=== PATIENT | female | born 1990 | race Caucasian/White ===

== ENCOUNTER → 2021-02-25 09:45 | Outpatient (CLI) | payer OTHER, SELFPAY ==
[2021-02-25 12:15] LABS: Influenza A - CEPHEID Flu A NEGATIVE (NEGATIVE); Influenza B - CEPHEID Flu B NEGATIVE (NEGATIVE)
[2021-02-25 12:37] LABS: COVID-19 CEPHEID PCR (VTM/NP) Negative (Negative)
== END ==
PROVIDERS: Visit Provider Nurse Practitioner Family
DX: R68.89 Other general symptoms and signs (principal); Z20.822 Contact with and (suspected) exposure to COVID-19
CPT/HCPCS: 87502; U0003

== ENCOUNTER → 2021-02-26 14:32 | Outpatient (CLI) | payer OTHER, SELFPAY | PROVIDERS: Visit Provider Physician Assistant | DX: R52 Pain, unspecified (principal) | CPT/HCPCS: 87070 ==

== ENCOUNTER → 2023-01-17 08:18 | Outpatient (CLI) | payer OTHER, SELFPAY ==
[2023-01-17 08:56] LABS: Add Manual Diff / Slide Review NO; Basophils Absolute Auto 0 /uL (0-100); Basophils Percent Auto 0.6 % (0-2); Eosinophils Absolute Auto 100 /uL (0-450); Eosinophils Percent Auto 1.4 % (2-4); Hematocrit 39.6 % (36-46); Hemoglobin 13.4 g/dL (12.0-16.0); Lymphocytes Absolute Auto 1800 /uL (1100-4500); Lymphocytes Percent Auto 33.7 % (25-40); Mean Corpuscular Hemoglobin 32.1 PG (26-34); Mean Corpuscular Volume 94.5 fL (80-100); Monocytes Absolute Auto 600 /uL (0-900); Neutrophils Absolute Auto 2800 /uL (1500-7000); Neutrophils Percent Auto 53.3 % (50-75); Platelet Count 237 X10^3/uL (150-400); Red Blood Cell Count 4.19 X10^6/uL (4.0-5.2); Red Cell Distribution Width 12.4 % (11.6-14.8); White Blood Cell Count 5.2 X10^3/uL (4.5-11.0)
[2023-01-17 09:14] LABS: Alanine Aminotransferase 15 IU/L (<35); Albumin 4.4 g/dL (3.5-5.0); Albumin Globulin Ratio 1.5 (1.0-2.8); Alkaline Phosphatase 44 U/L (38-126); Aspartate Aminotransferase 20 IU/L (14-36); BUN Creatinine Ratio 28.1 (6-22); Bilirubin Total 0.5 mg/dL (0.2-1.3); Blood Urea Nitrogen 18 mg/dL (7-17); Calcium 9.4 mg/dL (8.4-10.2); Carbon Dioxide 24 mmol/L (22-32); Chloride 107 mmol/L (98-107); Cholesterol 145 mg/dL (140-199); Estimated Glomerular Filt Rate > 60 mL/min (>60); Glucose 95 mg/dL (70-100); HDL Cholesterol 55 mg/dL (40-60); HEMOLYSIS < 15 (0-50); LDL Cholesterol Calculated 79 mg/dL (<100); Potassium 3.7 mmol/L (3.4-5.1); Sodium 139 mmol/L (137-145); Total Protein 7.4 g/dL (6.3-8.2); Triglycerides 55 mg/dL (35-150)
[2023-01-17 09:16] LABS: Hemoglobin A1C% w Est Avg Glu 5.2 % (4.0-6.0)
[2023-01-17 09:19] LABS: High Sensitivity CRP - Cardiac 0.8 mg/L (1.0-3.0)
[2023-01-17 09:42] LABS: TSH w/ Reflex to FT4 1.38 uIU/mL (0.47-4.68)
[2023-01-17 09:47] LABS: Ferritin 21 ng/mL (6-137)
== END ==
PROVIDERS: PCP Family Medicine; Visit Provider Family Medicine
DX: D64.9 Anemia, unspecified (principal); E78.5 Hyperlipidemia, unspecified; R53.83 Other fatigue; R73.9 Hyperglycemia, unspecified
CPT/HCPCS: 80053; 80061; 82728; 83036; 84443; 85025; 86140

== ENCOUNTER 2023-07-13 12:24 | Emergency (ER) | payer OTHER, SELFPAY ==
[2023-07-13 12:31] VITALS: BP 166/110; PULSE 85; RESP 14; TEMP 36.6; O2SAT 97; BMI 28.1
--- NOTE | 2023-07-13 15:01 | DI.CT.S_ITS ---
PROCEDURE: CT HEAD/BRAIN WO CON INDICATIONS: double vision /headache TECHNIQUE: Noncontrast 4.5 mm thick angled axial sections acquired from the foramen magnum to the vertex, with coronal and sagittal reformats. For radiation dose reduction, the following was used: automated exposure control, adjustment of mA and/or kV according to patient size. COMPARISON: [facility], CT, CT ANGIO HEAD AND NECK, 07/13/2023, 15:24. FINDINGS: Image quality: Diagnostic. CSF spaces: Basal cisterns are patent. No extra-axial fluid collections. Ventricles are normal in size and shape. Brain: No midline shift. No intracranial masses or hemorrhage. Polo-white matter interface is normal. Skull and face: Calvarium and visualized facial bones are intact, without suspicious lesions. Sinuses: Moderate mucosal thickening can be seen within the left maxillary sinus, with milder mucosal thickening seen elsewhere within the paranasal sinuses. No abnormal fluid is seen within the mastoid air cells. IMPRESSION: No imaging explanation is found for this patient's presenting symptoms. No acute intracranial hemorrhage is seen. Dictated by: Rohit Dallas M.D. on 07/13/2023 at 14:40 Approved by: Rohit Dallas M.D. on 07/13/2023 at 14:42
[2023-07-13 15:03] VITALS: BP 164/85; PULSE 78; O2SAT 99
--- NOTE | 2023-07-13 15:03 | ED.NEUROSD ---
HPI - Neuro Symptoms/Deficit General Chief Complaint: Eye Problems Stated Complaint: double vision, lightheaded sent by PCP Time Seen by Provider: 07/13/23 14:04 Source: patient Mode of arrival: Ambulatory History of Present Illness HPI Narrative: patient here with . Just prior to arrival at work patient experienced 1 or 2 minute episode double vision dizziness nausea and feeling flushed. No headache. No palpitations no chest pain. No slurred speech or seizure activity. No unilateral weakness or numbness. Episode was witnessed by co-worker. No prior history of seizure or migraine headaches. No family history of strokes. Blood pressure noted. She states she has anxiety. She was very anxious when triaging. We will recheck blood pressure. Patient is asymptomatic at this time. Denies . On Anticoagulants: No Related Data Home Medications Medication Instructions Recorded Confirmed propranolol 10 mg tablet 10 mg PO ONCE PRN 07/18/23 07/18/23 Allergies Allergy/AdvReac Type Severity Reaction Status Date / Time No Known Drug Allergies Allergy Verified 07/18/23 13:25 Review of Systems Review of Systems Narrative: GENERAL: negative chills, fatigue, malaise, fever, sweats. HEENT: negative sinus pain, ear pain, sore throat RESPIRATORY: negative dyspnea, cough CARDIOVASCULAR: negative chest pain, palpitations GASTROINTESTINAL: positive nausea, negative vomiting, abdominal pain : negative dysuria, frequency, hematuria MUSCULOSKELETAL: negative muscle or bony pain SKIN: negative rash, skin lesions NEUROLOGIC: negative weakness, numbness, positive dizziness positive double vision, negative headache ROS Unobtainable: All systems reviewed & are unremarkable except as noted in HPI and below Hematologic/Lymphatic On Anticoagulants: No Patient History Medical History (Updated 07/28/23 @ 00:01 by ) Grief Shoulder pain (~2018) Foot pain (~2021) Anxiety (~2018) Surgical History [place] teeth removed Family History (Updated 07/18/23 @ 13:28 by Marie Delacruz MA) Father Cancer Mother Diabetes mellitus Hypertension Brother Hypertension Pancreatic cancer Diabetes mellitus Grandfather History of heart disease Grandmother Diabetes mellitus History of heart disease Brother Cancer Sister Colon polyps Social History Smoking Status: Never smoker alcohol intake: current (1-2 drinks weekly ) substance use type: does not use Smoking Status: Never smoker alcohol intake frequency: holidays/special occasions only Substance Use Type: does not use Exam Narrative Exam Narrative: GENERAL: in no distress, not toxic not dyspneic HEAD: Normocephalic. EYES: Pupils equal round EOMI, no active double vision or blurry vision at this time ENT: Mucous membranes moist. NECK: Trachea midline. CARDIOVASCULAR: Regular rate and rhythm RESPIRATORY: Clear to auscultation. Breath sounds equal bilaterally. No wheezes, rales, or rhonchi. GASTROINTESTINAL: Abdomen soft, non-tender EXTREMITIES: No gross deformities. BACK: No flank tenderness. NEURO: AOx4.Clear speech no facial droop light touch intact bilateral face hands and legs. Strong equal retail coverage merchandiser lead. Elevate each leg independently without difficulty or drift. Negative pronator drift SKIN: Warm and dry PSYCH: Not anxious, is cooperative Initial Vital Signs Initial Vital Signs: Vital Signs Temperature 97.8 F 07/13/23 12:31 Pulse Rate 85 07/13/23 12:31 Respiratory Rate 14 07/13/23 12:31 Blood Pressure 166/110 H 07/13/23 12:31 Pulse Oximetry 97 07/13/23 12:31 Oxygen Delivery Method Room Air 07/13/23 12:31 Scores NIH Stroke Scale Level of Conciousness: Alert, keenly responsive Ask month/age: Answers both questions correctly. Open/close eyes, close hand: Performs both tasks correctly Best gaze horizontal: Normal Visual hung: No visual loss Facial palsy: Normal symetrical movement Left arm drift: No drift for full 10 sec Right arm drift: No drift for full 10 sec Left leg drift: No drift for full 5 sec Right leg drift: No drift for full 5 sec Limb ataxia: Absent Sensory on face/arms/legs: Normal, no sensory loss Best language: No aphasia, normal Dysarthria: Normal Extinction or inattention: No abnormality Total NIH Stroke scale score: 0 Course Orders Ordered: Discontinued Medications Sodium Chloride (Normal Saline 0.9%) 500 mls @ 1,000 mls/hr IV BOLUS ONE Stop: 07/13/23 15:36 Last Infusion: 07/13/23 16:13 Dose: Infused Documented By: Admin: 07/13/23 15:30 Dose: 1,000 mls/hr Documented By: OW Vital Signs Vital signs: Vital Signs - 8 hr 07/13/23 12:31 07/13/23 15:03 07/13/23 15:03 Temperature 97.8 F Pulse Rate 85 78 Respiratory Rate 14 Blood Pressure 166/110 H 164/85 H Pulse Oximetry 97 99 Oxygen Delivery Method Room Air 07/13/23 16:50 Temperature Pulse Rate 82 Respiratory Rate 12 Blood Pressure 141/87 H Pulse Oximetry 99 Oxygen Delivery Method Room Air MDM - Neuro Symptoms/Deficit Lab Data 07/13/23 15:17 07/13/23 15:17 Labs: Lab Results 07/13/23 Range/Units 15:17 WBC 8.1 (4.5-11.0) X10^3/uL RBC 4.42 (4.0-5.2) X10^6/uL Hgb 13.9 (12.0-16.0) g/dL Hct 41.3 (36-46) % MCV 93.5 (80-100) fL MCH 31.5 (26-34) PG MCHC 33.7 (30-36) % RDW 12.5 (11.6-14.8) % Plt Count 330 (150-400) X10^3/uL Neut % (Auto) 63.2 (50-75) % Lymph % (Auto) 27.4 (25-40) % [place] % (Auto) 8.1 (3-14) % Eos % (Auto) 1.0 L (2-4) % Baso % (Auto) 0.3 (0-2) % Neut # (Auto) 5100 (3722-7554) /uL Lymph # (Auto) 2200 (7659-7536) /uL [place] # (Auto) 700 (0-900) /uL Eos # (Auto) 100 (0-450) /uL Baso # (Auto) 0 (0-100) /uL Sodium 140 (137-145) mmol/L Potassium 3.8 (3.4-5.1) mmol/L Chloride 107 (98-107) mmol/L Carbon Dioxide 24 (22-32) mmol/L BUN 9 (7-17) mg/dL Creatinine 0.54 (0.52-1.04) mg/dL Estimated GFR > 60 (>60) mL/min BUN/Creatinine Ratio 16.7 (6-22) Glucose 95 (70-100) mg/dL Calcium 9.5 (8.4-10.2) mg/dL Total Bilirubin 0.4 (0.2-1.3) mg/dL AST 26 (14-36) IU/L ALT 21 (<35) IU/L Alkaline Phosphatase 56 (38-126) U/L Total Creatine Kinase 69 (30-135) U/L Troponin I < 0.012 (0.01-0.034) ng/mL Total Protein 8.3 H (6.3-8.2) g/dL Albumin 4.5 (3.5-5.0) g/dL Globulin 3.8 (1.7-4.1) g/dL Albumin/Globulin Ratio 1.2 (1.0-2.8) Serum , Qual Negative (Negative) Imaging Data CT scan - head: Radiologist's Impression: [address] [address] [address] Scan Report Signed Patient: Maryjo Wyman MR#: [id number] : 1990 Acct:[id number] Age/Sex: 33 / F Date of Service: 07/13/23 Loc: ED Accession Number: [id number] Procedure: CT head/brain wo con Ordering Provider: Jacinto Dee MD PROCEDURE: CT HEAD/BRAIN WO CON INDICATIONS: double vision /headache TECHNIQUE: Noncontrast 4.5 mm thick angled axial sections acquired from the foramen magnum to the vertex, with coronal and sagittal reformats. For radiation dose reduction, the following was used: automated exposure control, adjustment of mA and/or kV according to patient size. COMPARISON: [facility], CT, CT ANGIO HEAD AND NECK, 07/13/2023, 15:24. FINDINGS: Image quality: Diagnostic. CSF spaces: Basal cisterns are patent. No extra-axial fluid collections. Ventricles are normal in size and shape. Brain: No midline shift. No intracranial masses or hemorrhage. Polo-white matter interface is normal. Skull and face: Calvarium and visualized facial bones are intact, without suspicious lesions. Sinuses: Moderate mucosal thickening can be seen within the left maxillary sinus, with milder mucosal thickening seen elsewhere within the paranasal sinuses. No abnormal fluid is seen within the mastoid air cells. IMPRESSION: No imaging explanation is found for this patient's presenting symptoms. No acute intracranial hemorrhage is seen. Dictated by: Rohit Dallas M.D. on 07/13/2023 at 14:40 Approved by: Rohit Dallas M.D. on 07/13/2023 at 14:42 CTA - brain/neck: Radiologist's Impression: [address] [address] [address] Scan Report Signed Patient: Maryjo Wyman MR#: [id number] : 1990 Acct:[id number] Age/Sex: 33 / F Date of Service: 07/13/23 Loc: ED Accession Number: [id number] Procedure: CT angio head and neck Ordering Provider: Jacinto Dee MD PROCEDURE: CT ANGIO HEAD AND NECK INDICATIONS: double vision /headache TECHNIQUE: After the administration of intravenous contrast, 1 mm thick sections acquired from the aortic arch through the [place] of [place]. 3-dimensional rpxkyef-cirpyplph-xiseitrkbg (MIP) and/or volume rendering reformats were acquired of the central intracranial vasculature and neck separately. For radiation dose reduction, the following was used: automated exposure control, adjustment of mA and/or kV according to patient size. COMPARISON: [facility], CT, CT HEAD/BRAIN WO CON, 07/13/2023, 15:24. FINDINGS: Image quality: Limited by bolus timing, with venous contamination. BRAIN: CSF spaces: Ventricles are normal in size and shape. Basal cisterns are patent. No extra-axial fluid collections. Brain: No significant abnormality of the brain can be seen. Skull and face: Calvarium and facial bones appear intact, without suspicious lesions. Orbits appear normal. Sinuses: Sinuses and mastoids are clear. HEAD CT ANGIOGRAPHY: Anterior circulation: Intracranial internal carotid arteries are normal in size and flow. The flow within the paired anterior cerebral arteries is normal and symmetric. The flow within the middle cerebral arteries is normal and symmetric. The anterior communicating artery is seen. No aneurysms are seen. Posterior circulation: Visualized portions of the vertebral arteries demonstrate normal caliber, and join to form a normal appearing basilar artery. Flow within the posterior cerebral arteries is normal and symmetric. No aneurysms are seen. NECK CT ANGIOGRAPHY: Carotid system: The great vessels demonstrate a conventional anatomy as they arise from the aortic arch. The origins of the common carotid arteries appear patent. The common carotid arteries demonstrate normal caliber and courses. The bifurcation regions are both widely patent. The internal carotid arteries demonstrate normal calibers and courses. Posterior circulation: The origins of the vertebral arteries both appear widely patent. The more superior extracranial portions of both vertebral arteries also demonstrate normal courses and calibers. They join to form a normal appearing basilar artery. Soft tissues: Visualized neck soft tissues demonstrate no suspicious abnormalities. Bones: No suspicious bony lesions. Visualized cervical spine appears normally aligned. IMPRESSION: No significant intracranial arterial abnormality is seen. No intracranial aneurysms are detected. No significant abnormality is seen within the arteries of the neck. Any quantitative measurements of stenosis were performed using NASCET criteria. Dictated by: Rohit Dallas M.D. on 07/13/2023 at 14:42 Approved by: Rohit Dallas M.D. on 07/13/2023 at 14:44 [facility] Narrative Medical decision making narrative: patient here with . Just prior to arrival at work patient experienced 1 or 2 minute episode double vision dizziness nausea and feeling flushed. No headache. No palpitations no chest pain. No slurred speech or seizure activity. No unilateral weakness or numbness. Episode was witnessed by co-worker. No prior history of seizure or migraine headaches. No family history of strokes. Blood pressure noted. She states she has anxiety. She was very anxious when triaging. We will recheck blood pressure. Patient is asymptomatic at this time. Denies . After history and examCT head CT angiogram head and neck EKG CBC CMP normal saline, patient is at baseline at this time. No complaints [facility] CC: double vision dizzy nausea Complicating co-morbidities: negative Data collected from: patient and Medical records reviewed: no recent visit for this complaint Differential considered: Includes but not limited to hypertensive urgency TIA stroke hypoglycemia anxiety Exam documented above, pertinent findings include: fast exam is negative Lab Test results independently reviewed as above. Pertinent findings: WBC 8.1 hemoglobin 13.9 sodium 140 potassium 3.8 troponin less than 0.012 negative test Independently reviewed EKG normal sinus rhythm rate [address] elevation or depression. Imaging studies independently reviewed: CT head CT angiogram head and neck no acute finding Consultations: 5:15 p.m.. Spoke with the [facility] neurology Dr. Maguire, she does not feel this is a TIA/stroke event. Not ocular migraine. This could be anxiety. However no admission or observation indicated. Patient can follow up with primary care for referral for Neurology. No new medications indicated at this time. Treatments: normal saline Re-evaluations: 5:30 p.m.. Spoke with patient and . Patient remains asymptomatic. She states episode actually lasted less than 1 minute. There was horizontal double vision at the time. No chest complaints. They are comfortable with follow up with primary care for referral to Neurology. They understand new new medications at this time. Return precautions reviewed with him. They desire discharge home. Discussion: appropriate for discharge home. Exam and laboratory studies and imaging studies are reassuring. Neurology services was consulted. No MRI indicated at this time. Follow up with primary care appropriate. Referral for Neurology as well. Work note provided. Return precautions reviewed. They desire discharge home. patient does have history of anxiety. Anxiety is still differential, this was patient's 1st day back to work. Patient states there was loss of a family member recently. Diagnosis: Double vision Discharge Plan Departure Patient Disposition: Home Clinical Impression: Double vision Instructions: DI for Double Vision Activity Restrictions/Additional Instructions: please see your family doctor next week for re-evaluation. Return if worse if any questions or concerns. At this time your exam and laboratory studies and imaging studies are reassuring. Neurology services was contacted tonight. You will need referral to Neurology Services by your primary care provider. No new prescriptions are indicated at this time. Return if worse if any questions or concerns Prescriptions: No Action propranolol 10 mg tablet 10 mg PO ONCE PRN Referrals: Reny Albrecht DO [Primary Care Provider] - Stand Alone Forms: Patient Portal/API, Work Release Note
[2023-07-13 15:26] LABS: Add Manual Diff / Slide Review NO; Basophils Absolute Auto 0 /uL (0-100); Basophils Percent Auto 0.3 % (0-2); Eosinophils Absolute Auto 100 /uL (0-450); Hematocrit 41.3 % (36-46); Hemoglobin 13.9 g/dL (12.0-16.0); Lymphocytes Absolute Auto 2200 /uL (1100-4500); Lymphocytes Percent Auto 27.4 % (25-40); Mean Corpuscular HGB Conc 33.7 % (30-36); Mean Corpuscular Hemoglobin 31.5 PG (26-34); Mean Corpuscular Volume 93.5 fL (80-100); Monocytes Absolute Auto 700 /uL (0-900); Monocytes Percent Auto 8.1 % (3-14); Neutrophils Absolute Auto 5100 /uL (1500-7000); Neutrophils Percent Auto 63.2 % (50-75); Platelet Count 330 X10^3/uL (150-400); Red Blood Cell Count 4.42 X10^6/uL (4.0-5.2); Red Cell Distribution Width 12.5 % (11.6-14.8); White Blood Cell Count 8.1 X10^3/uL (4.5-11.0)
[2023-07-13] MEDS: SODIUM CHLORIDE 0.9% 500 ML 1000 ML IV (15:30)
[2023-07-13 15:41] LABS: Pregnancy Test Serum,Qual Negative (Negative)
[2023-07-13 15:44] LABS: Alanine Aminotransferase 21 IU/L (<35); Albumin 4.5 g/dL (3.5-5.0); Albumin Globulin Ratio 1.2 (1.0-2.8); Alkaline Phosphatase 56 U/L (38-126); Aspartate Aminotransferase 26 IU/L (14-36); BUN Creatinine Ratio 16.7 (6-22); Bilirubin Total 0.4 mg/dL (0.2-1.3); Blood Urea Nitrogen 9 mg/dL (7-17); Calcium 9.5 mg/dL (8.4-10.2); Carbon Dioxide 24 mmol/L (22-32); Chloride 107 mmol/L (98-107); Creatine Kinase 69 U/L (30-135); Estimated Glomerular Filt Rate > 60 mL/min (>60); Globulin 3.8 g/dL (1.7-4.1); Glucose 95 mg/dL (70-100); HEMOLYSIS < 15 (0-50); Potassium 3.8 mmol/L (3.4-5.1); Sodium 140 mmol/L (137-145); Total Protein 8.3 g/dL (6.3-8.2)
[2023-07-13 15:56] LABS: Troponin I < 0.012 ng/mL (0.01-0.034)
[2023-07-13 16:50] VITALS: BP 141/87; PULSE 82; RESP 12; O2SAT 99
[2023-07-13 17:00] VITALS: BP 136/82; PULSE 79; RESP 13; O2SAT 98
[2023-07-13 17:30] VITALS: BP 130/82; PULSE 69; RESP 16; O2SAT 99
== END 2023-07-13 17:51 | disposition home or self-care (01) ==
PROVIDERS: Emergency Provider Emergency Medicine; PCP Family Medicine
DX: H53.8 Other visual disturbances (principal); R11.0 Nausea; R42 Dizziness and giddiness
CPT/HCPCS: 36415; 70450; 70496; 70498; 80053; 82550; 84484; 84703; 85025; 93005; 93010; 99284

== ENCOUNTER → 2024-03-26 12:06 | Outpatient (CLI) | payer OTHER, SELFPAY | PROVIDERS: PCP Family Medicine; Visit Provider Physician Assistant | DX: R10.2 Pelvic and perineal pain (principal); M54.50 Low back pain, unspecified | CPT/HCPCS: 87086 ==

== ENCOUNTER → 2024-07-25 09:54 | Outpatient (CLI) | payer OTHER, SELFPAY ==
[2024-07-25 10:39] LABS: Alanine Aminotransferase 21 IU/L (<35); Albumin 4.8 g/dL (3.5-5.0); Albumin Globulin Ratio 1.6 (1.0-2.8); Alkaline Phosphatase 47 U/L (38-126); Aspartate Aminotransferase 26 IU/L (14-36); BUN Creatinine Ratio 27.1 (6-22); Bilirubin Total 0.4 mg/dL (0.2-1.3); Blood Urea Nitrogen 19 mg/dL (7-17); Calcium 9.8 mg/dL (8.4-10.2); Carbon Dioxide 21 mmol/L (22-32); Chloride 108 mmol/L (98-107); Cholesterol 162 mg/dL (140-199); Estimated Glomerular Filt Rate > 60 mL/min (>60); Glucose 101 mg/dL (70-100); HDL Cholesterol 57 mg/dL (40-60); HEMOLYSIS < 15 (0-50); LDL Cholesterol Calculated 94 mg/dL (<100); Potassium 4.5 mmol/L (3.4-5.1); Sodium 140 mmol/L (137-145); Total Protein 7.8 g/dL (6.3-8.2); Triglycerides 56 mg/dL (35-150)
[2024-07-25 10:42] LABS: Hemoglobin A1C% w Est Avg Glu 5.2 % (4.0-6.0)
[2024-07-25 11:09] LABS: TSH w/ Reflex to FT4 0.93 uIU/mL (0.47-4.68)
[2024-07-25 11:15] LABS: Ferritin 27 ng/mL (6-137)
[2024-07-26 04:08] LABS: CRP, High Sensitivity 0.69 mg/L (0.00-3.00)
[2024-07-26 13:11] LABS: Insulin Level Total 5.9 uIU/mL (2.6-24.9)
== END ==
PROVIDERS: PCP Family Medicine; Visit Provider Family Medicine
DX: Z31.9 Encounter for procreative management, unspecified (principal); Z13.220 Encounter for screening for lipoid disorders; D64.9 Anemia, unspecified; R53.83 Other fatigue
CPT/HCPCS: 80053; 80061; 82397; 82728; 83036; 83525; 84443; 86140

== ENCOUNTER → 2024-12-20 12:29 | Outpatient (CLI) | payer OTHER, SELFPAY ==
[2024-12-20 13:27] LABS: HCG Quantitative /Beta subunit 10.45 mIU/mL
== END ==
PROVIDERS: PCP Family Medicine; Referring Provider Student in an Organized Health Care Education/Training Program; Visit Provider Student in an Organized Health Care Education/Training Program
DX: O26.851 Spotting complicating pregnancy, first trimester (principal)
CPT/HCPCS: 36415; 84702

== ENCOUNTER → 2024-12-23 08:40 | Outpatient (CLI) | payer OTHER, SELFPAY ==
[2024-12-23 09:42] LABS: HCG Quantitative /Beta subunit 20.49 mIU/mL
== END ==
PROVIDERS: PCP Family Medicine; Referring Provider Family Medicine; Visit Provider Student in an Organized Health Care Education/Training Program
DX: O26.851 Spotting complicating pregnancy, first trimester (principal)
CPT/HCPCS: 36415; 84702

== ENCOUNTER → 2024-12-25 11:39 | Outpatient (CLI) | payer OTHER, SELFPAY ==
[2024-12-25 13:33] LABS: HCG Quantitative /Beta subunit 6.88 mIU/mL
== END ==
PROVIDERS: PCP Family Medicine; Referring Provider Student in an Organized Health Care Education/Training Program; Visit Provider Student in an Organized Health Care Education/Training Program
DX: Z34.91 Encounter for supervision of normal pregnancy, unspecified, first trimester (principal)
CPT/HCPCS: 36415; 84702

== ENCOUNTER → 2025-05-16 06:59 | Outpatient (CLI) | payer OTHER, SELFPAY ==
--- NOTE | 2025-05-16 06:59 | DI.US.S_ITS ---
PROCEDURE: US PELVIC COMPLETE INDICATIONS: LEFT PELVIC PAIN TECHNIQUE: Real-time scanning was performed of the pelvic organs, with image documentation. Additional endovaginal scanning was necessary due to incomplete visualization of the adnexal and endometrial structures by transabdominal scanning. COMPARISON: None. FINDINGS: Uterus: Uterus is retroverted and normal in size at 6.3 x 5.1 x 3.7 cm. The myometrium is homogeneous. The endometrium measures 3.5 mm combined thickness. Ovaries: The right ovary measures 4.0 x 2.2 x 1.9 cm, with a calculated ovarian volume of 8.8 cc. The left ovary measures 3.4 x 1.6 x 2.0 cm, with a calculated ovarian volume of 5.6 cc. The ovaries have a normal sonographic appearance. Less than 12 follicles can be seen in each ovary. No adnexal masses are seen. Other: No pathologic free abdominal or pelvic fluid. IMPRESSION: Normal pelvic ultrasound. Approved by: Thao Prince M.D.,Ph.D. on 05/16/2025 at 21:25
== END ==
LOC: US 06:59
PROVIDERS: PCP Family Medicine; Referring Provider Advanced Practice Midwife; Visit Provider Advanced Practice Midwife
DX: R10.20 Pelvic and perineal pain unspecified side (principal)
CPT/HCPCS: 76830; 76856